=== PATIENT | female | born 1990 | race Caucasian/White ===

== ENCOUNTER 2017-09-28 16:17 | Emergency (ER) | payer OTHER ==
[~2017-09-28] VITALS: Ht 157.5 cm; Wt 58.1 kg
[2017-09-28 16:17] VITALS: BP 136/83
[~2017-09-28 16:17] MED LIST: IBUP-51 PO
[2017-09-28] MEDS ORDERED: KETOROLAC TROMETHAMINE INJ 30 MG/ML VIAL ONE (16:52)
[2017-09-28] MEDS ORDERED: CYCLOBENZAPRINE 10 MG TABLET ONE (16:52)
[2017-09-28] MEDS ORDERED: CYCLOBENZAPRINE 10 MG TABLET PO ONE (17:00)
[2017-09-28] MEDS ORDERED: KETOROLAC TROMETHAMINE INJ 30 MG/ML VIAL IM ONE (17:00)
== END 2017-09-28 17:04 | disposition home or self-care (01) ==
LOC: ER 16:18
DX: S29.012A Strain of muscle and tendon of back wall of thorax, initial encounter (principal); X58.XXXA Exposure to other specified factors, initial encounter; Y93.89 Activity, other specified; Y92.89 Other specified places as the place of occurrence of the external cause; Y99.8 Other external cause status
CPT/HCPCS: 96372; 99283; A4606; J1885; Z7610

== ENCOUNTER 2023-03-07 10:57 | Emergency (ER) | payer MEDICAID, OTHER ==
--- NOTE | 2023-03-07 11:00 | NUR ---
32 Y/O F BIBS FOR ABDOMINAL PAIN X 1 WEEK, WORSE WHEN EATING. A/O X 3, ABLE TO MAKE NEEDS KNOWN, TOLERATING WELL ON ROOM AIR.
[2023-03-07] MEDS ORDERED: ACETAMINOPHEN 325 MG TABLET PO ONE (12:00)
[2023-03-07] MEDS ORDERED: ACETAMINOPHEN ES 500 MG TABLET ONE (12:07)
[2023-03-07 12:10] LABS: BASOPHILS % (AUTO) 0.7 % (0.0-2.0); HEMATOCRIT 32 % (33-45); HEMOGLOBIN 11.3 g/dL (11.5-14.8); LYMPHOCYTES # (AUTO) 1.7 K/uL (0.8-4.8); LYMPHOCYTES % (AUTO) 41.4 % (20.0-44.0); MEAN CORPUSCULAR HGB CONC 35 g/dl (31.0-36.0); MEAN CORPUSCULAR VOLUME 83 fL (82-100); MONOCYTES # (AUTO) 0.3 K/uL (0.1-1.30); MONOCYTES % (AUTO) 6.8 % (2.0-12.0); NEUTROPHILS % (AUTO) 49.1 % (43.0-81.0); PLATELET COUNT (AUTO) 236 K/uL (150-450); RED BLOOD CELL COUNT(AUTO) 3.88 MIL/uL (4.0-5.2); WHITE BLOOD COUNT (AUTO) 4.1 K/uL (4.3-11.0)
--- NOTE | 2023-03-07 12:11 | NUR ---
BLOOD SAMPLES OBTAINED
[2023-03-07 12:19] LABS: BILIRUBIN,URINE NEGATIVE (NEGATIVE); COLOR,URINE YELLOW (YELLOW); LEUKOCYTE ESTERASE ,URINE 1+ (NEGATIVE); NITRITE, URINE NEGATIVE (NEGATIVE); PH,URINE 6.5 (5.0-8.0); PROTEIN,URINE NEGATIVE (NEGATIVE); UGLUCOSE NEGATIVE (NEGATIVE); UROBILINOGEN,URINE 0.2 EU/dL (0.2)
[2023-03-07 12:26] LABS: CALCIUM, SERUM 9.1 mg/dL (8.5-10.1); CREATININE 0.7 mg/dL (0.6-1.3); POTASSIUM 3.7 mmol/L (3.5-5.1)
[2023-03-07 12:29] LABS: ALBUMIN 3.8 g/dL (3.4-5.0); BILIRUBIN,DIRECT 0.1 mg/dL (0.0-0.2); BILIRUBIN,TOTAL 0.3 mg/dL (0.2-1.0); TOTAL PROTEIN, SERUM 7.8 g/dL (6.4-8.2)
--- NOTE | 2023-03-07 12:30 | NUR ---
URINE SAMPLE OBTAINED
[2023-03-07 12:52] LABS: RBC,URINE 0-2 /HPF (0-2)
[2023-03-07 12:53] LABS: BACTERIA,URINE Few /HPF (None Seen); SQUAMOUS EPITHELIAL CELL,UR Few /HPF (None Seen)
[2023-03-07] MEDS ORDERED: ONDA4TAB5 PO (13:14)
[2023-03-07] MEDS ORDERED: FAMO20TA8 PO (13:14)
--- NOTE | 2023-03-07 14:00 | NUR ---
Patient discharged to home in stable condition. Written and verbal after care instructions given. Patient verbalizes understanding of instruction.IV removed. Catheter intact and site benign. Pressure and 4x4 applied to site. No bleeding noted.
[2023-03-07 14:01] VITALS: BP 115/74
== END 2023-03-07 14:01 | disposition home or self-care (01) ==
LOC: ER 10:58
DX: R10.9 Unspecified abdominal pain (principal); Z79.899 Other long term (current) drug therapy
CPT/HCPCS: 36415; 80048-TC; 80076-TC; 81001; 83690-TC; 84703-TC; 85025-TC; 87086-TC

== ENCOUNTER 2023-11-17 15:35 | Emergency (ER) | payer MEDICAID ==
[~2023-11-17] VITALS: Ht 154.9 cm; Wt 60.8 kg
[~2023-11-17 15:35] MED LIST changes: +FAMO20TA8 PO; +ONDA4TAB5 PO
[2023-11-17 15:47] VITALS: TEMP 98.7
[2023-11-17] MEDS ORDERED: CYCLOBENZAPRINE 10 MG TABLET PO ONE (21:00)
[2023-11-17] MEDS ORDERED: LIDOCAINE 5% (PATCH) 1 EA PATCH TP ONE ×2 (21:00→21:07)
[2023-11-17] MEDS ORDERED: KETOROLAC TROMETHAMINE 15 MG/ML VIAL IM ONE (21:00)
[2023-11-17] MEDS ORDERED: KETOROLAC TROMETHAMINE 15 MG/ML VIAL ONE (21:07)
[2023-11-17] MEDS ORDERED: CYCLOBENZAPRINE 10 MG TABLET ONE (21:08)
[2023-11-17] MEDS ORDERED: IBUP-1955 PO (21:44)
[2023-11-17] MEDS ORDERED: CYCL5TAB PO (21:44)
[2023-11-17 21:54] VITALS: BP 125/70; O2SAT 100
== END 2023-11-17 21:54 | disposition home or self-care (01) ==
LOC: ER 15:35
DX: M54.6 Pain in thoracic spine (principal); Z79.899 Other long term (current) drug therapy; Z60.2 Problems related to living alone
CPT/HCPCS: 99283; 71045; 96372; 93005; J1885

== ENCOUNTER 2025-01-30 10:18 | Emergency (ER) | payer MEDICAID ==
[~2025-01-30] VITALS: Ht 175.3 cm; Wt 63.5 kg
[~2025-01-30 10:18] MED LIST changes: +CYCL5TAB PO; +IBUP-1955 PO
[2025-01-30] MEDS ORDERED: FAMOTIDINE/PF INJ 20 MG/2 ML VIAL IV ONE (10:43)
[2025-01-30] MEDS ORDERED: LIDOCAINE VISCOUS 2% UD 15 ML UDC ONE (10:43)
[2025-01-30] MEDS ORDERED: MAG HYDROX/AL HYDROX/SIMETH 30 ML UDC ONE (10:43)
[2025-01-30] MEDS: FAMOTIDINE/PF INJ 20 MG/2 ML VIAL IV ONE (10:59)
[2025-01-30] MEDS: LIDOCAINE VISCOUS 2% UD 15 ML UDC MM ONE (11:00)
[2025-01-30] MEDS: MAG HYDROX/AL HYDROX/SIMETH 30 ML UDC PO ONE (11:00)
[2025-01-30 11:44] LABS: CALCIUM, SERUM 8.9 mg/dL (8.5-10.1); CARBON DIOXIDE 28 mmol/L (21-32); CHLORIDE 108 mmol/L (98-107); CREATININE 0.6 mg/dL (0.6-1.3); GLUCOSE 89 mg/dL (74-106); POTASSIUM 4.7 mmol/L (3.5-5.1); SODIUM SERUM 142 mmol/L (136-145); UREA NITROGEN, BLOOD 12 mg/dL (7-18)
[2025-01-30 11:45] LABS: BASOPHILS % (AUTO) 0.4 % (0.0-2.0); EOSINOPHILS # (AUTO) 0.2 K/uL (0.0-0.7); EOSINOPHILS % (AUTO) 3.9 % (0.0-6.0); HEMATOCRIT 34 % (33-45); HEMOGLOBIN 11.7 g/dL (11.5-14.8); LYMPHOCYTES # (AUTO) 1.5 K/uL (0.8-4.8); LYMPHOCYTES % (AUTO) 37.7 % (20.0-44.0); MEAN CORPUSCULAR HEMOGLOBIN 29 PG (26.0-33.0); MEAN CORPUSCULAR HGB CONC 35 g/dl (31.0-36.0); MEAN CORPUSCULAR VOLUME 85 fL (82-100); MONOCYTES # (AUTO) 0.3 K/uL (0.1-1.30); MONOCYTES % (AUTO) 6.5 % (2.0-12.0); NEUTROPHILS % (AUTO) 51.5 % (43.0-81.0); PLATELET COUNT (AUTO) 197 K/uL (150-450); RED BLOOD CELL COUNT(AUTO) 4.01 MIL/uL (4.0-5.2); RED CELL DISTRIBUTION WIDTH 13.3 % (11.5-15.0)
[2025-01-30 11:50] LABS: ALANINE AMINOTRANSFERASE 42 U/L (12-78); ALBUMIN 3.8 g/dL (3.4-5.0); ALKALINE PHOSPHATASE 42 U/L (46-116); ASPARTATE AMINOTRANSFERASE 27 U/L (15-37); BILIRUBIN,DIRECT 0.1 mg/dL (0.0-0.2); BILIRUBIN,TOTAL 0.3 mg/dL (0.2-1.0); LIPASE 43 U/L (16-77); TOTAL PROTEIN, SERUM 7.6 g/dL (6.4-8.2)
[2025-01-30] MEDS ORDERED: OMEP20TA20 PO (12:22)
[2025-01-30 12:39] VITALS: BP 119/82; TEMP 98.6; O2SAT 100
== END 2025-01-30 12:40 | disposition home or self-care (01) ==
LOC: ER 11:26
DX: R07.89 Other chest pain (principal); R10.13 Epigastric pain; R39.89 Other symptoms and signs involving the genitourinary system; Z79.899 Other long term (current) drug therapy
CPT/HCPCS: 99285; 96374; 71045; 93005; 85025; 80048; 83690; 80076; 36415; 84484 ×2; J3490